=== PATIENT | male | born 1955 | race Caucasian/White ===

== ENCOUNTER 2022-01-22 18:32 | Observation (INO) | payer MEDICARE, OTHER, SELFPAY ==
[2022-01-22] VITALS (16 sets, daily range): BP systolic 117–178; BP diastolic 60–95; PULSE 64–88; RESP 9–24; TEMP 36.2; O2SAT 68–100; BMI 24.4
--- NOTE | 2022-01-22 18:46 | DI.RAD.S_ITS ---
PROCEDURE: XR CHEST 1V INDICATIONS: chest pain TECHNIQUE: One view of the chest was acquired. COMPARISON: 11/28/2021 PET/CT FINDINGS: Surgical changes and devices: Left port catheter terminates in the lower SVC. Lungs and pleura: Lungs are clear. No pleural effusions or pneumothorax. Nodular opacity projects over the left mid lung, possibly a nipple shadow. This was not seen on PET-CT from 11/28/2021. Mediastinum: Mediastinal contours appear normal. Heart size is normal. Bones and chest wall: No suspicious bony lesions. Overlying soft tissues appear unremarkable. IMPRESSION: No radiographic consolidation. Left port catheter terminates in lower SVC. There is a nodular opacity projecting over the left mid lung, not seen on prior PET-CT from 11/28/2021, possibly a nipple shadow. Dictated by: Ed Lacy M.D. on 01/22/2022 at 19:19 Approved by: Ed Lacy M.D. on 01/22/2022 at 19:23
[2022-01-22] MEDS: ASPIRIN 81 MG CHEW TAB 324 MG PO (18:51)
[2022-01-22] MEDS: NITROGLYCERIN 0.4 MG SL TAB SL ×2 (18:51→19:08)
[2022-01-22 19:23] LABS: Add Manual Diff / Slide Review NO; Basophils Absolute Auto 0 /uL (0-100); Basophils Percent Auto 0.4 % (0-2); Eosinophils Absolute Auto 100 /uL (0-450); Eosinophils Percent Auto 2.8 % (2-4); Hematocrit 23.3 % (41-53); Hemoglobin 7.7 g/dL (13.5-17.5); Lymphocytes Absolute Auto 500 /uL (1100-4500); Lymphocytes Percent Auto 21.4 % (25-40); Mean Corpuscular Hemoglobin 27.4 PG (26-34); Mean Corpuscular Volume 83.1 fL (80-100); Monocytes Absolute Auto 300 /uL (0-900); Monocytes Percent Auto 12.2 % (3-14); Neutrophils Absolute Auto 1500 /uL (1500-7000); Neutrophils Percent Auto 63.2 % (50-75); Platelet Count 174 X10^3/uL (150-400); Red Cell Distribution Width 16.9 % (11.6-14.8); White Blood Cell Count 2.4 X10^3/uL (4.5-11.0)
[2022-01-22 19:29] LABS: Alanine Aminotransferase 10 IU/L (<50); Albumin 3.7 g/dL (3.5-5.0); Albumin Globulin Ratio 1.3 (1.0-2.8); Alkaline Phosphatase 513 U/L (38-126); Aspartate Aminotransferase 46 IU/L (17-59); BUN Creatinine Ratio 16.3 (6-22); Bilirubin Total 0.4 mg/dL (0.2-1.3); Blood Urea Nitrogen 13 mg/dL (9-20); Calcium 8.8 mg/dL (8.4-10.2); Carbon Dioxide 26 mmol/L (22-32); Chloride 96 mmol/L (98-107); Creatine Kinase 95 U/L (55-170); Estimated Glomerular Filt Rate > 60 mL/min (>60); Globulin 2.9 g/dL (1.7-4.1); Glucose 100 mg/dL (80-110); HEMOLYSIS < 15 (0-50); Lipase 31 U/L (23-300); Magnesium 2.4 mg/dL (1.6-2.3); Sodium 128 mmol/L (137-145); Total Protein 6.6 g/dL (6.3-8.2)
[2022-01-22 19:41] LABS: Troponin I < 0.012 ng/mL (0.01-0.034)
--- NOTE | 2022-01-22 20:40 | ED_ITS ---
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 He had received immunotherapy and also chemotherapy which made little change in his cancer and is currently waiting for a new and difficult to find drug which he is scheduled to receive a few weeks. He developed significant retrosternal chest pressure while at rest earlier in the day that was without any obvious provocation or palliation initially. As the day went on he developed another episode that was certainly worsened by exertion and improves with rest. On his arrival his chest pain was 10/10 and improved after a few nitro and was completely resolved after morphine. During the episodes of pain he felt quite weak and short of breath but denies any vomiting or unexplained diaphoresis. He denies any recent travel nor history of clot. He has had cardiac evaluations in the past with echocardiograms and stress test but never had any abnormal findings and has never had a heart catheterization. He states it has been many years since any evaluation of this type. Related Data Home Medications Medication Instructions Recorded Confirmed lisinopril 10 mg tablet 10 mg PO DAILY 01/23/22 01/23/22 ondansetron 8 mg disintegrating 8 mg PO PRN PRN Nausea 01/23/22 01/23/22 tablet Allergies Allergy/AdvReac Type Severity Reaction Status Date / Time No Known Drug Allergies Allergy Verified 01/22/22 18:39 Review of Systems <Saul Nolasco DO - Last Filed: 01/24/22 02:52> Review of Systems Narrative: GENERAL: See HPI HEENT: Denies sinus pain, ear pain, sore throat, difficulty swallowing, dizziness. RESPIRATORY: Denies dyspnea, cough, wheezing, hemoptysis, sputum. CARDIOVASCULAR: See HPI GASTROINTESTINAL: Denies nausea, vomiting, abdominal pain, diarrhea, constipation, melena. : Denies dysuria, frequency, incontinence, hematuria, urinary retention. MUSCULOSKELETAL: denies weakness, joint pain, or bony pain SKIN: Denies rash, skin lesions, or other NEUROLOGIC: Denies weakness, headache, numbness, change in speech, confusion, seizures, incoordination. PSYCHIATRIC: No concerning psychosocial issues. 12 point review of systems is negative except for those stated above Patient History <Saul Nolasco DO - Last Filed: 01/24/22 02:52> Social History household members: spouse Smoking Status: Never smoker alcohol intake: current Smoking Status: Never smoker Substance Use Type: marijuana Exam <Saul Nolasco DO - Last Filed: 01/24/22 02:52> Narrative Exam Narrative: GENERAL: [66] year old patient appears stated age. Thin with temporal wasting HEAD: Atraumatic. Normocephalic. EYES: Pupils equal round and reactive. Extraocular motions intact. No scleral icterus. No injection or drainage. ENT: Nose without bleeding, purulent drainage. Throat without erythema, tonsillar hypertrophy or exudate. Airway patent. NECK: Trachea midline. Non tender CARDIOVASCULAR: Regular rate and rhythm without murmurs, gallops, or rubs. RESPIRATORY: Clear to auscultation. Breath sounds equal bilaterally. No wheezes, rales, or rhonchi. GASTROINTESTINAL: Abdomen soft, non-tender, nondistended. EXTREMITIES: No edema or joint tenderness. BACK: Nontender without deformity or crepitance. No flank tenderness. NEURO: AOx3. SKIN: No rash or erythema of visible areas Initial Vital Signs Initial Vital Signs: Vital Signs Temperature 97.1 F L 01/22/22 18:39 Pulse Rate 84 01/22/22 18:39 Respiratory Rate 18 01/22/22 18:39 Blood Pressure 178/95 H 01/22/22 18:39 Pulse Oximetry 99 01/22/22 18:39 Oxygen Delivery Method 01/22/22 18:39 <Marilia Conte DO - Last Filed: 01/23/22 17:53> Initial Vital Signs Initial Vital Signs: Vital Signs Temperature 97.1 F L 01/22/22 18:39 Pulse Rate 84 01/22/22 18:39 Respiratory Rate 18 01/22/22 18:39 Blood Pressure 178/95 H 01/22/22 18:39 Pulse Oximetry 99 01/22/22 18:39 Oxygen Delivery Method 01/22/22 18:39 Scores <Saul Nolasco DO - Last Filed: 01/24/22 02:52> HEART Score Heart Score history: Highly Suspicious Heart Score EKG: Normal Heart Score Age: > or = 65 years old Heart Score risk factors: 1-2 risk factors Heart Score troponin: < or = to normal limit Heart Score Total: 5 <Marilia Conte DO - Last Filed: 01/23/22 17:53> HEART Score Heart Score Total: 5 Course <Saul Nolasco, - Last Filed: 01/24/22 02:52> Orders Ordered: ED Orders 01/24/22 05:00 BMP [Basic Metabolic Panel] DAILY CBC Auto Diff [Complete Blood Count AUTO DIFF] DAILY 01/25/22 05:00 BMP [Basic Metabolic Panel] DAILY CBC Auto Diff [Complete Blood Count AUTO DIFF] DAILY 01/26/22 05:00 BMP [Basic Metabolic Panel] DAILY CBC Auto Diff [Complete Blood Count AUTO DIFF] DAILY Acetaminophen (Acetaminophen 325 Mg Tablet) 325 mg PO Q6HR PRN PRN Reason: Fever/Mild Pain (1-3) Aspirin (Aspirin Ec 81 Mg Tablet) 81 mg PO DAILY [facility] Last Admin: 01/23/22 08:33 Dose: 81 mg Documented By: DANYELL Enoxaparin Sodium (Enoxaparin 40 Mg/0.4 Ml Syringe) 40 mg SUBCUT DAILY [facility] Last Admin: 01/23/22 10:00 Dose: 40 mg Documented By: DIRK Fentanyl (Fentanyl 25 Mcg/Patch) 25 mcg TOP Q72H [facility] Last Admin: 01/23/22 18:29 Dose: 25 mcg Documented By: DIRK Sodium Chloride (Normal Saline 0.9%) 1,000 mls @ 100 mls/hr IV CONT [facility] Stop: 01/24/22 03:44 Last Admin: 01/23/22 18:29 Dose: 100 mls/hr Documented By: DIRK Lisinopril (Lisinopril 10 Mg Tablet) 10 mg PO DAILY [facility] Nitroglycerin (Nitroglycerin 0.4 Mg Sl Tab) 0.4 mg SL [id number] PRN PRN Reason: Chest Pain Last Admin: 01/22/22 19:08 Dose: 0.4 mg Documented By: Admin: 01/22/22 18:51 Dose: 0.4 mg Documented By: NASIMA Oxycodone/Acetaminophen (Oxycodone/Acetaminophen 5/325 Tablet) 1 tab PO Q4HR PRN PRN Reason: Pain, Moderate (4-6) Last Admin: 01/23/22 18:35 Dose: 1 tab Documented By: Admin: 01/23/22 12:40 Dose: 1 tab Documented By: DIRK Discontinued Medications Acetaminophen (Acetaminophen 325 Mg Tablet) 650 mg PO Q6HR PRN PRN Reason: Fever/Mild Pain (1-3) Aspirin (Aspirin 81 Mg Chew Tab) 324 mg PO NOW ONE Stop: 01/22/22 18:47 Last Admin: 01/22/22 18:51 Dose: 324 mg Documented By: NASIMA Atorvastatin Calcium (Atorvastatin 20 Mg Tablet) 40 mg PO NOW ONE Stop: 01/23/22 01:01 Last Admin: 01/23/22 01:39 Dose: 40 mg Documented By: WALTER Morphine Sulfate (Morphine 4 Mg/Ml Inj) 4 mg IV NOW ONE Stop: 01/22/22 20:51 Last Admin: 01/22/22 21:06 Dose: 4 mg Documented By: YOGESH Nitroglycerin (Nitroglycerin Oint 1 Inch/Gm Oint...G.) 0.5 inch TOP NOW ONE Stop: 01/23/22 01:44 Last Admin: 01/23/22 01:47 Dose: 0.5 inch Documented By: WALTER Oxycodone HCl (Oxycodone Ir 5 Mg Tablet) 5 mg PO NOW ONE Stop: 01/23/22 08:11 Last Admin: 01/23/22 08:32 Dose: 5 mg Documented By: DANYELL Oxycodone HCl (Oxycodone Ir 5 Mg Tablet) 5 mg PO Q4HR PRN PRN Reason: Pain, Moderate (4-6) Consultations Consultation #1: Call to Cardiology at [facility]. Dr. Tejada recommends admission and stress test. NO indication for transfer at this point call to hospitalist here at [facility]. NO access to stress until Wednesday Calls to [facility], [place], Trever Herring, . No beds. On list Vital Signs Vital signs: Vital Signs - 8 hr 01/23/22 01:47 01/23/22 00:30 01/23/22 00:30 Pulse Rate 67 62 Respiratory Rate 14 Blood Pressure 146/73 H 140/70 Pulse Oximetry 99 01/23/22 01:00 01/23/22 01:00 01/23/22 01:30 Pulse Rate 66 Respiratory Rate 19 Blood Pressure 144/76 H 146/73 H Pulse Oximetry 98 01/23/22 01:30 01/23/22 02:00 01/23/22 02:00 Pulse Rate 64 67 Respiratory Rate 13 12 Blood Pressure 134/78 Pulse Oximetry 99 100 01/23/22 02:30 01/23/22 02:30 01/23/22 03:00 Pulse Rate 65 Respiratory Rate 13 Blood Pressure 139/77 131/71 Pulse Oximetry 100 01/23/22 03:00 01/23/22 03:30 01/23/22 03:30 Pulse Rate 68 72 Respiratory Rate 13 13 Blood Pressure 121/69 Pulse Oximetry 96 97 01/23/22 04:00 01/23/22 04:00 01/23/22 04:30 Pulse Rate 67 Respiratory Rate 12 Blood Pressure 116/73 130/71 Pulse Oximetry 96 01/23/22 04:30 01/23/22 05:00 01/23/22 05:00 Pulse Rate 67 67 Respiratory Rate 20 13 Blood Pressure 135/71 Pulse Oximetry 98 98 01/23/22 05:30 01/23/22 05:30 01/23/22 06:00 Pulse Rate 74 Respiratory Rate 16 Blood Pressure 127/69 131/72 Pulse Oximetry 98 01/23/22 06:00 01/23/22 06:30 01/23/22 06:30 Pulse Rate 78 68 Respiratory Rate 17 17 Blood Pressure 138/76 Pulse Oximetry 96 97 <Marilia Conte, DO - Last Filed: 01/23/22 17:53> Orders Ordered: ED Orders 01/24/22 05:00 BMP [Basic Metabolic Panel] DAILY CBC Auto Diff [Complete Blood Count AUTO DIFF] DAILY 01/25/22 05:00 BMP [Basic Metabolic Panel] DAILY CBC Auto Diff [Complete Blood Count AUTO DIFF] DAILY 01/26/22 05:00 BMP [Basic Metabolic Panel] DAILY CBC Auto Diff [Complete Blood Count AUTO DIFF] DAILY Acetaminophen (Acetaminophen 325 Mg Tablet) 325 mg PO Q6HR PRN PRN Reason: Fever/Mild Pain (1-3) Aspirin (Aspirin Ec 81 Mg Tablet) 81 mg PO DAILY [facility] Last Admin: 01/23/22 08:33 Dose: 81 mg Documented By: CSD Enoxaparin Sodium (Enoxaparin 40 Mg/0.4 Ml Syringe) 40 mg SUBCUT DAILY [facility] Last Admin: 01/23/22 10:00 Dose: 40 mg Documented By: DIRK Fentanyl (Fentanyl 25 Mcg/Patch) 25 mcg TOP Q72H [facility] Last Admin: 01/23/22 18:29 Dose: 25 mcg Documented By: DIRK Sodium Chloride (Normal Saline 0.9%) 1,000 mls @ 100 mls/hr IV CONT ADAM Stop: 01/24/22 03:44 Last Admin: 01/23/22 18:29 Dose: 100 mls/hr Documented By: DIRK Lisinopril (Lisinopril 10 Mg Tablet) 10 mg PO DAILY [facility] Nitroglycerin (Nitroglycerin 0.4 Mg Sl Tab) 0.4 mg SL [id number] PRN PRN Reason: Chest Pain Last Admin: 01/22/22 19:08 Dose: 0.4 mg Documented By: Admin: 01/22/22 18:51 Dose: 0.4 mg Documented By: NASIMA Oxycodone/Acetaminophen (Oxycodone/Acetaminophen 5/325 Tablet) 1 tab PO Q4HR PRN PRN Reason: Pain, Moderate (4-6) Last Admin: 01/23/22 18:35 Dose: 1 tab Documented By: Admin: 01/23/22 12:40 Dose: 1 tab Documented By: DIRK Discontinued Medications Acetaminophen (Acetaminophen 325 Mg Tablet) 650 mg PO Q6HR PRN PRN Reason: Fever/Mild Pain (1-3) Aspirin (Aspirin 81 Mg Chew Tab) 324 mg PO NOW ONE Stop: 01/22/22 18:47 Last Admin: 01/22/22 18:51 Dose: 324 mg Documented By: NASIMA Atorvastatin Calcium (Atorvastatin 20 Mg Tablet) 40 mg PO NOW ONE Stop: 01/23/22 01:01 Last Admin: 01/23/22 01:39 Dose: 40 mg Documented By: WALTER Morphine Sulfate (Morphine 4 Mg/Ml Inj) 4 mg IV NOW ONE Stop: 01/22/22 20:51 Last Admin: 01/22/22 21:06 Dose: 4 mg Documented By: YOGESH Nitroglycerin (Nitroglycerin Oint 1 Inch/Gm Oint...G.) 0.5 inch TOP NOW ONE Stop: 01/23/22 01:44 Last Admin: 01/23/22 01:47 Dose: 0.5 inch Documented By: WALTER Oxycodone HCl (Oxycodone Ir 5 Mg Tablet) 5 mg PO NOW ONE Stop: 01/23/22 08:11 Last Admin: 01/23/22 08:32 Dose: 5 mg Documented By: DANYELL Oxycodone HCl (Oxycodone Ir 5 Mg Tablet) 5 mg PO Q4HR PRN PRN Reason: Pain, Moderate (4-6) Vital Signs Vital signs: Vital Signs - 8 hr 01/23/22 01:47 01/23/22 00:30 01/23/22 00:30 Pulse Rate 67 62 Respiratory Rate 14 Blood Pressure 146/73 H 140/70 Pulse Oximetry 99 01/23/22 01:00 01/23/22 01:00 01/23/22 01:30 Pulse Rate 66 Respiratory Rate 19 Blood Pressure 144/76 H 146/73 H Pulse Oximetry 98 01/23/22 01:30 01/23/22 02:00 01/23/22 02:00 Pulse Rate 64 67 Respiratory Rate 13 12 Blood Pressure 134/78 Pulse Oximetry 99 100 01/23/22 02:30 01/23/22 02:30 01/23/22 03:00 Pulse Rate 65 Respiratory Rate 13 Blood Pressure 139/77 131/71 Pulse Oximetry 100 01/23/22 03:00 01/23/22 03:30 01/23/22 03:30 Pulse Rate 68 72 Respiratory Rate 13 13 Blood Pressure 121/69 Pulse Oximetry 96 97 01/23/22 04:00 01/23/22 04:00 01/23/22 04:30 Pulse Rate 67 Respiratory Rate 12 Blood Pressure 116/73 130/71 Pulse Oximetry 96 01/23/22 04:30 01/23/22 05:00 01/23/22 05:00 Pulse Rate 67 67 Respiratory Rate 20 13 Blood Pressure 135/71 Pulse Oximetry 98 98 01/23/22 05:30 01/23/22 05:30 01/23/22 06:00 Pulse Rate 74 Respiratory Rate 16 Blood Pressure 127/69 131/72 Pulse Oximetry 98 01/23/22 06:00 01/23/22 06:30 01/23/22 06:30 Pulse Rate 78 68 Respiratory Rate 17 17 Blood Pressure 138/76 Pulse Oximetry 96 97 MDM - Chest Pain <Saul Nolasco, DO - Last Filed: 01/24/22 02:52> Lab Data Result diagrams: 01/23/22 18:42 01/22/22 19:00 Labs: Lab Results 01/22/22 01/22/22 01/22/22 Range/Units 19:00 19:00 22:44 WBC 2.4 L (4.5-11.0) X10^3/uL RBC 2.80 L (4.5-5.9) X10^6/uL Hgb 7.7 L (13.5-17.5) g/dL Hct 23.3 L (41-53) % MCV 83.1 (80-100) fL MCH 27.4 (26-34) PG MCHC 33.0 (30-36) % RDW 16.9 H (11.6-14.8) % Plt Count 174 (150-400) X10^3/uL Neut % (Auto) 63.2 (50-75) % Lymph % (Auto) 21.4 L (25-40) % [place] % (Auto) 12.2 (3-14) % Eos % (Auto) 2.8 (2-4) % Baso % (Auto) 0.4 (0-2) % Neut # (Auto) 1500 (7933-6842) /uL Lymph # (Auto) 500 L (6523-7574) /uL [place] # (Auto) 300 (0-900) /uL Eos # (Auto) 100 (0-450) /uL Baso # (Auto) 0 (0-100) /uL Sodium 128 L (137-145) mmol/L Potassium 4.0 (3.4-5.1) mmol/L Chloride 96 L (98-107) mmol/L Carbon Dioxide 26 (22-32) mmol/L BUN 13 (9-20) mg/dL Creatinine 0.80 (0.66-1.25) mg/dL Estimated GFR > 60 (>60) mL/min BUN/Creatinine Ratio 16.3 (6-22) Glucose 100 (80-110) mg/dL Hemoglobin A1c (4.0-6.0) % Calcium 8.8 (8.4-10.2) mg/dL Magnesium 2.4 H (1.6-2.3) mg/dL Total Bilirubin 0.4 (0.2-1.3) mg/dL AST 46 (17-59) IU/L ALT 10 (<50) IU/L Alkaline Phosphatase 513 H (38-126) U/L Total Creatine Kinase 95 81 (55-170) U/L CK-MB (CK-2) TNP TNP CK-MB (CK-2) Rel Index TNP TNP Troponin I < 0.012 < 0.012 (0.01-0.034) ng/mL NT-Pro-B Natriuret Pep (<125) pg/mL Total Protein 6.6 (6.3-8.2) g/dL Albumin 3.7 (3.5-5.0) g/dL Globulin 2.9 (1.7-4.1) g/dL Albumin/Globulin Ratio 1.3 (1.0-2.8) Triglycerides (35-150) mg/dL Cholesterol (140-199) mg/dL LDL Cholesterol, Calc (<100) mg/dL HDL Cholesterol (40-60) mg/dL Lipase 31 (23-300) U/L SARS-CoV-2 (PCR) (Negative) Blood Type Antibody Screen Crossmatch 01/23/22 01/23/22 01/23/22 Range/Units 04:45 08:05 08:16 WBC (4.5-11.0) X10^3/uL RBC (4.5-5.9) X10^6/uL Hgb (13.5-17.5) g/dL Hct (41-53) % MCV (80-100) fL MCH (26-34) PG MCHC (30-36) % RDW (11.6-14.8) % Plt Count (150-400) X10^3/uL Neut % (Auto) (50-75) % Lymph % (Auto) (25-40) % [place] % (Auto) (3-14) % Eos % (Auto) (2-4) % Baso % (Auto) (0-2) % Neut # (Auto) (2558-9340) /uL Lymph # (Auto) (9718-9729) /uL [place] # (Auto) (0-900) /uL Eos # (Auto) (0-450) /uL Baso # (Auto) (0-100) /uL Sodium (137-145) mmol/L Potassium (3.4-5.1) mmol/L Chloride (98-107) mmol/L Carbon Dioxide (22-32) mmol/L BUN (9-20) mg/dL Creatinine (0.66-1.25) mg/dL Estimated GFR (>60) mL/min BUN/Creatinine Ratio (6-22) Glucose (80-110) mg/dL Hemoglobin A1c (4.0-6.0) % Calcium (8.4-10.2) mg/dL Magnesium (1.6-2.3) mg/dL Total Bilirubin (0.2-1.3) mg/dL AST (17-59) IU/L ALT (<50) IU/L Alkaline Phosphatase (38-126) U/L Total Creatine Kinase 64 (55-170) U/L CK-MB (CK-2) TNP CK-MB (CK-2) Rel Index TNP Troponin I < 0.012 (0.01-0.034) ng/mL NT-Pro-B Natriuret Pep (<125) pg/mL Total Protein (6.3-8.2) g/dL Albumin (3.5-5.0) g/dL Globulin (1.7-4.1) g/dL Albumin/Globulin Ratio (1.0-2.8) Triglycerides (35-150) mg/dL Cholesterol (140-199) mg/dL LDL Cholesterol, Calc (<100) mg/dL HDL Cholesterol (40-60) mg/dL Lipase (23-300) U/L SARS-CoV-2 (PCR) Negative (Negative) Blood Type A Positive Antibody Screen Negative Crossmatch See Detail 01/23/22 01/23/22 01/23/22 Range/Units 08:16 08:16 08:16 WBC (4.5-11.0) X10^3/uL RBC (4.5-5.9) X10^6/uL Hgb (13.5-17.5) g/dL Hct (41-53) % MCV (80-100) fL MCH (26-34) PG MCHC (30-36) % RDW (11.6-14.8) % Plt Count (150-400) X10^3/uL Neut % (Auto) (50-75) % Lymph % (Auto) (25-40) % [place] % (Auto) (3-14) % Eos % (Auto) (2-4) % Baso % (Auto) (0-2) % Neut # (Auto) (5371-4222) /uL Lymph # (Auto) (1705-6134) /uL [place] # (Auto) (0-900) /uL Eos # (Auto) (0-450) /uL Baso # (Auto) (0-100) /uL Sodium (137-145) mmol/L Potassium (3.4-5.1) mmol/L Chloride (98-107) mmol/L Carbon Dioxide (22-32) mmol/L BUN (9-20) mg/dL Creatinine (0.66-1.25) mg/dL Estimated GFR (>60) mL/min BUN/Creatinine Ratio (6-22) Glucose (80-110) mg/dL Hemoglobin A1c 5.9 (4.0-6.0) % Calcium (8.4-10.2) mg/dL Magnesium (1.6-2.3) mg/dL Total Bilirubin (0.2-1.3) mg/dL AST (17-59) IU/L ALT (<50) IU/L Alkaline Phosphatase (38-126) U/L Total Creatine Kinase (55-170) U/L CK-MB (CK-2) CK-MB (CK-2) Rel Index Troponin I (0.01-0.034) ng/mL NT-Pro-B Natriuret Pep 229 H (<125) pg/mL Total Protein (6.3-8.2) g/dL Albumin (3.5-5.0) g/dL Globulin (1.7-4.1) g/dL Albumin/Globulin Ratio (1.0-2.8) Triglycerides 136 (35-150) mg/dL Cholesterol 164 (140-199) mg/dL LDL Cholesterol, Calc 102 H (<100) mg/dL HDL Cholesterol 35 L (40-60) mg/dL Lipase (23-300) U/L SARS-CoV-2 (PCR) (Negative) Blood Type Antibody Screen Crossmatch <Marilia Conte DO - Last Filed: 01/23/22 17:53> Lab Data Labs: Lab Results 01/22/22 01/22/22 01/22/22 Range/Units 19:00 19:00 22:44 WBC 2.4 L (4.5-11.0) X10^3/uL RBC 2.80 L (4.5-5.9) X10^6/uL Hgb 7.7 L (13.5-17.5) g/dL Hct 23.3 L (41-53) % MCV 83.1 (80-100) fL MCH 27.4 (26-34) PG MCHC 33.0 (30-36) % RDW 16.9 H (11.6-14.8) % Plt Count 174 (150-400) X10^3/uL Neut % (Auto) 63.2 (50-75) % Lymph % (Auto) 21.4 L (25-40) % [place] % (Auto) 12.2 (3-14) % Eos % (Auto) 2.8 (2-4) % Baso % (Auto) 0.4 (0-2) % Neut # (Auto) 1500 (9337-8377) /uL Lymph # (Auto) 500 L (4540-3190) /uL [place] # (Auto) 300 (0-900) /uL Eos # (Auto) 100 (0-450) /uL Baso # (Auto) 0 (0-100) /uL Sodium 128 L (137-145) mmol/L Potassium 4.0 (3.4-5.1) mmol/L Chloride 96 L (98-107) mmol/L Carbon Dioxide 26 (22-32) mmol/L BUN 13 (9-20) mg/dL Creatinine 0.80 (0.66-1.25) mg/dL Estimated GFR > 60 (>60) mL/min BUN/Creatinine Ratio 16.3 (6-22) Glucose 100 (80-110) mg/dL Hemoglobin A1c (4.0-6.0) % Calcium 8.8 (8.4-10.2) mg/dL Magnesium 2.4 H (1.6-2.3) mg/dL Total Bilirubin 0.4 (0.2-1.3) mg/dL AST 46 (17-59) IU/L ALT 10 (<50) IU/L Alkaline Phosphatase 513 H (38-126) U/L Total Creatine Kinase 95 81 (55-170) U/L CK-MB (CK-2) TNP TNP CK-MB (CK-2) Rel Index TNP TNP Troponin I < 0.012 < 0.012 (0.01-0.034) ng/mL NT-Pro-B Natriuret Pep (<125) pg/mL Total Protein 6.6 (6.3-8.2) g/dL Albumin 3.7 (3.5-5.0) g/dL Globulin 2.9 (1.7-4.1) g/dL Albumin/Globulin Ratio 1.3 (1.0-2.8) Triglycerides (35-150) mg/dL Cholesterol (140-199) mg/dL LDL Cholesterol, Calc (<100) mg/dL HDL Cholesterol (40-60) mg/dL Lipase 31 (23-300) U/L SARS-CoV-2 (PCR) (Negative) Blood Type Antibody Screen Crossmatch 01/23/22 01/23/22 01/23/22 Range/Units 04:45 08:05 08:16 WBC (4.5-11.0) X10^3/uL RBC (4.5-5.9) X10^6/uL Hgb (13.5-17.5) g/dL Hct (41-53) % MCV (80-100) fL MCH (26-34) PG MCHC (30-36) % RDW (11.6-14.8) % Plt Count (150-400) X10^3/uL Neut % (Auto) (50-75) % Lymph % (Auto) (25-40) % [place] % (Auto) (3-14) % Eos % (Auto) (2-4) % Baso % (Auto) (0-2) % Neut # (Auto) (7924-0881) /uL Lymph # (Auto) (6371-4267) /uL [place] # (Auto) (0-900) /uL Eos # (Auto) (0-450) /uL Baso # (Auto) (0-100) /uL Sodium (137-145) mmol/L Potassium (3.4-5.1) mmol/L Chloride (98-107) mmol/L Carbon Dioxide (22-32) mmol/L BUN (9-20) mg/dL Creatinine (0.66-1.25) mg/dL Estimated GFR (>60) mL/min BUN/Creatinine Ratio (6-22) Glucose (80-110) mg/dL Hemoglobin A1c (4.0-6.0) % Calcium (8.4-10.2) mg/dL Magnesium (1.6-2.3) mg/dL Total Bilirubin (0.2-1.3) mg/dL AST (17-59) IU/L ALT (<50) IU/L Alkaline Phosphatase (38-126) U/L Total Creatine Kinase 64 (55-170) U/L CK-MB (CK-2) TNP CK-MB (CK-2) Rel Index TNP Troponin I < 0.012 (0.01-0.034) ng/mL NT-Pro-B Natriuret Pep (<125) pg/mL Total Protein (6.3-8.2) g/dL Albumin (3.5-5.0) g/dL Globulin (1.7-4.1) g/dL Albumin/Globulin Ratio (1.0-2.8) Triglycerides (35-150) mg/dL Cholesterol (140-199) mg/dL LDL Cholesterol, Calc (<100) mg/dL HDL Cholesterol (40-60) mg/dL Lipase (23-300) U/L SARS-CoV-2 (PCR) Negative (Negative) Blood Type A Positive Antibody Screen Negative Crossmatch See Detail 01/23/22 01/23/22 01/23/22 Range/Units 08:16 08:16 08:16 WBC (4.5-11.0) X10^3/uL RBC (4.5-5.9) X10^6/uL Hgb (13.5-17.5) g/dL Hct (41-53) % MCV (80-100) fL MCH (26-34) PG MCHC (30-36) % RDW (11.6-14.8) % Plt Count (150-400) X10^3/uL Neut % (Auto) (50-75) % Lymph % (Auto) (25-40) % [place] % (Auto) (3-14) % Eos % (Auto) (2-4) % Baso % (Auto) (0-2) % Neut # (Auto) (5704-4145) /uL Lymph # (Auto) (2166-9230) /uL [place] # (Auto) (0-900) /uL Eos # (Auto) (0-450) /uL Baso # (Auto) (0-100) /uL Sodium (137-145) mmol/L Potassium (3.4-5.1) mmol/L Chloride (98-107) mmol/L Carbon Dioxide (22-32) mmol/L BUN (9-20) mg/dL Creatinine (0.66-1.25) mg/dL Estimated GFR (>60) mL/min BUN/Creatinine Ratio (6-22) Glucose (80-110) mg/dL Hemoglobin A1c 5.9 (4.0-6.0) % Calcium (8.4-10.2) mg/dL Magnesium (1.6-2.3) mg/dL Total Bilirubin (0.2-1.3) mg/dL AST (17-59) IU/L ALT (<50) IU/L Alkaline Phosphatase (38-126) U/L Total Creatine Kinase (55-170) U/L CK-MB (CK-2) CK-MB (CK-2) Rel Index Troponin I (0.01-0.034) ng/mL NT-Pro-B Natriuret Pep 229 H (<125) pg/mL Total Protein (6.3-8.2) g/dL Albumin (3.5-5.0) g/dL Globulin (1.7-4.1) g/dL Albumin/Globulin Ratio (1.0-2.8) Triglycerides 136 (35-150) mg/dL Cholesterol 164 (140-199) mg/dL LDL Cholesterol, Calc 102 H (<100) mg/dL HDL Cholesterol 35 L (40-60) mg/dL Lipase (23-300) U/L SARS-CoV-2 (PCR) (Negative) Blood Type Antibody Screen Crossmatch Imaging Data Chest x-ray: Radiologist's Impression: Farrukh Breen MR#: [id number] : 1955 Acct:[id number] Age/Sex: 66 / M Date of Service: 01/22/22 Loc: ED Accession Number: [id number] ?? Procedure: XR chest 1V Ordering Provider: Saul Nolasco D.O. PROCEDURE:? XR CHEST 1V ? INDICATIONS:? chest pain ? TECHNIQUE:? One view of the chest was acquired.? ? COMPARISON:? 11/28/2021 PET/CT ? FINDINGS:? ? Surgical changes and devices:? Left port catheter terminates in the lower SVC. ? Lungs and pleura:? Lungs are clear.? No pleural effusions or pneumothorax.? Nodular opacity projects over the left mid lung, possibly a nipple shadow.? This was not seen on PET-CT from 11/28/2021. ? Mediastinum:? Mediastinal contours appear normal.? Heart size is normal.? ? Bones and chest wall:? No suspicious bony lesions.? Overlying soft tissues appear unremarkable.? ? IMPRESSION:? No radiographic consolidation.? Left port catheter terminates in lower SVC. There is a nodular opacity projecting over the left mid lung, not seen on prior PET-CT from 11/28/2021, possibly a nipple shadow.? ? ? Dictated by: Ed Lacy M.D. on 01/22/2022 at 19:19 ? ? Approved by: Ed Lacy M.D. on 01/22/2022 at 19:23 ? CT scan - chest: Radiologist's Impression: Signed Patient: Farrukh Breen MR#: [id number] : 1955 Acct:[id number] Age/Sex: 66 / M Date of Service: 01/22/22 Loc: Accession Number: [id number] ?? Procedure: CT angio chest PE protocol Ordering Provider: Saul Nolasco D.O. PROCEDURE:? CT ANGIO CHEST PE PROTOCOL ? INDICATIONS:? chest pain, SOB, cancer ? TECHNIQUE:? After the administration of intravenous contrast, 2 mm thick sections acquired from the pulmonary apices to the posterior costophrenic angles.? 3-dimensional maximum intensity projection (MIP) coronal and sagittal reformats were then acquired through the thorax.? For radiation dose reduction, the following was used:? automated exposure contr ol, adjustment of mA and/or kV according to patient size.? ? COMPARISON:? Outside Film, CT, CT CHEST ABDOMEN PELVIS WITH CONTRAST, 06/23/2021, 9:55.? Outside Film, NM, PET NECK TO MID THIGH, 11/28/2021, 13:19. ? FINDINGS:? Image quality:? Excellent.? ? Pulmonary arteries:? Pulmonary arteries demonstrate no intraluminal filling defects to suggest central pulmonary embolism.? There is enlargement of the pulmonary arteries suggestive of pulmonary arterial hypertension.? ? Lower Neck: No lymphadenopathy by size criteria. Thyroid:? Visualized thyroid demonstrates no discrete nodules. Axillae: No lymphadenopathy by size criteria. Chest Wall:? Unremarkable.? Bones:? There are extensive lytic and sclerotic osseous lesions throughout the visualized osseous structures involving the axial and appendicular skeleton consistent with metastatic disease redemonstrated.? There is interval increase in lytic lesions compared to the prior PET-CT, such as a community health representative lesion in the right aspect of the T5 vertebral body.? There is a mildly displaced fracture of the right 6th rib laterally.? ? Lungs and Airways:? No acute consolidation.? Dependent atelectasis is demonstrated bilaterally.? Indistinct ground-glass opacities are also noted suggestive of mild pulmonary edema.? The trachea and central airways are patent. Pleura:? There are small bilateral pleural effusions with compressive atelectasis in the lung bases, left greater than right. ? Heart: Heart size is normal.? No pericardial effusion. Thoracic Vessels: The thoracic aorta appears normal in size.? Mediastinum and Megan: No lymphadenopathy by size criteria. Esophagus: No wall thickening. No hiatal hernia. Abdomen:? Visualized upper abdomen redemonstrates multiple cysts within the visualized liver. ? IMPRESSION:? ? 1. No evidence of pulmonary embolism. ? 2. Small bilateral pleural effusions with associated compressive atelectasis.? There is suspected mild pulmonary edema. ? 3. Extensive osseous metastatic disease redemonstrated with slight progression compared to the prior PET-CT. ? 4. Mildly displaced fracture of the right 6th rib laterally redemonstrated.? ? ? Dictated by: Lewis Sheppard M.D. on 01/22/2022 at 21:50 ? ? CT scan - abdomen/pelvis: Radiologist's Impression: CT Scan Report Signed Patient: Farrukh Breen MR#: [id number] : 1955 Acct:[id number] Age/Sex: 66 / M Date of Service: 01/22/22 Loc: ED Accession Number: [id number] ?? Procedure: CT abdomen pelvis w con Ordering Provider: Saul Nolasco D.O. PROCEDURE:? CT ABDOMEN PELVIS W CON ? INDICATIONS:? chest and upper abdominal pain ? TECHNIQUE:? After the administration of IV contrast, axial sections were acquired from the lung bases to the pubic symphysis.? Coronal and sagittal reformats were performed.? For radiation dose reduction, the following was used:? automated exposure control, adjustment of mA and/or kV according to patient size. ? COMPARISON:? Outside Film, MR, MR LUMBAR SPINE WITH/WITHOUT CONTRAST, 07/11/2021, 16:04.? Outside Film, CT, CT CHEST ABDOMEN PELVIS WITH CONTRAST, 06/23/2021, 9:55.? Outside Film, NM, PET NECK TO MID THIGH, 11/28/2021, 13:19.? [facility], CT, CT ANGIO CHEST PE PROTOCOL, 01/22/2022, 21:03. ? FINDINGS:? Image quality:? Excellent.? ? Lung bases:? There are small bilateral pleural effusions with associated compressive atelectasis, left greater than right.? ? Heart:? Heart is normal in size. ? ? ABDOMEN: Liver:? A few scattered simple hepatic cysts are redemonstrated as well as small low-density foci which are too small to characterize but likely represent cysts. Gallbladder:? Within normal limits without calcified gallstones.? ? Biliary ducts:? No biliary ductal dilatation.? ? Pancreas:? Unremarkable.? ? Spleen:? Normal in size.? ? Adrenal Glands:? No adrenal nodules.? ? Kidneys and Ureters:? No hydronephrosis.? ? ? Stomach and Bowel:? Stomach, small bowel loops, and colon are normal in caliber and wall thickness.? No pericecal inflammatory changes to suggest appendicitis. Peritoneum:? No abnormal intraperitoneal fluid.? No free air.? ? Ventral Wall: ? No hernia.? Abdominal Nodes:? No retroperitoneal or mesenteric adenopathy by size criteria.? Vessels:? Aorta and inferior vena cava are normal in size.? ? PELVIS: Pelvic Organs:? Unremarkable.? ? Bladder:? Unremarkable.? ? Pelvic Nodes: No enlarged lymph nodes.? Miscellaneous:? There is a fat-containing right inguinal hernia. ? Bones:? Extensive lytic and sclerotic lesions are redemonstrated throughout the visualized osseous structures consistent with metastatic disease.? These are similar in overall appearance compared to the prior study.? There are mild superior endplate compression deformities of the L1 and L2 vertebral bodies which are of indeterminate acuity but appear new compared to the prior studies ? ? IMPRESSION:? ? 1. No definite acute intra-abdominal abnormality to correlate with patient's pain symptoms. ? 2. Extensive osseous metastatic disease redemonstrated.? Mild superior endplate compression deformities of the L1 and L2 vertebral bodies are new compared to the prior studies but of indeterminate acuity.? No retropulsed fragments in the spinal canal. ? ? Dictated by: Lewis Sheppard M.D. on 01/22/2022 at 22:03 ? ? ECG Data Interpretation: EKG 1. Normal sinus rhythm rate 71 OR interval 186 QRS [address] changes or T-wave inversions EKG 2. Sinus rhythm rate 66 similar to prior MDM Narrative Medical decision making narrative: [place]- Patient signed out to me by Dr. Nolasco, I seen evaluated patient myself. He states that he is not currently on chemotherapy his last chemo was in October he is being followed over at [facility] for his cancer. He said the chemotherapy basically stopped working. He is set to start an infusion [facility]nen on the 05 of February. 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 He is in severe pain every day. He said yesterday he felt like a racking ball hit him in the chest. He was unable to move. This was not his typical cancer pain. The chest pain with exertion which improved with rest and then he had more chest pain at rest. CT chest abdomen pelvis are negative he has 3- troponins. He is no longer having chest pain but is having some of his chronic ongoing bone pain. He is found to be mildly anemic with hemoglobin 7.7 he has a white count of 2.4. He says that once he stops chemo his numbers never quite recovered. He denies any fever or chills. Sodium mildly low at 128. Patient is on multiple list to be transferred. However he is stable with negative troponins. He is on multiple wait lists. On likely he will be getting a stress test here over the weekend. However is also highly unlikely that he will be transferred. Dr. Reyes kindly accepts patient for admission Discharge Plan Departure Patient Disposition: Admitted as Observation Clinical Impression: Chest pain Admit Date/Time: 01/23/22 08:39 Admit Provider: Ajay Reyes
--- NOTE | 2022-01-22 20:50 | DI.CT.S_ITS ---
PROCEDURE: CT ANGIO CHEST PE PROTOCOL INDICATIONS: chest pain, SOB, cancer TECHNIQUE: After the administration of intravenous contrast, 2 mm thick sections acquired from the pulmonary apices to the posterior costophrenic angles. 3-dimensional maximum intensity projection (MIP) coronal and sagittal reformats were then acquired through the thorax. For radiation dose reduction, the following was used: automated exposure control, adjustment of mA and/or kV according to patient size. COMPARISON: Outside Film, CT, CT CHEST ABDOMEN PELVIS WITH CONTRAST, 06/23/2021, 9:55. Outside Film, NM, PET NECK TO MID THIGH, 11/28/2021, 13:19. FINDINGS: Image quality: Excellent. Pulmonary arteries: Pulmonary arteries demonstrate no intraluminal filling defects to suggest central pulmonary embolism. There is enlargement of the pulmonary arteries suggestive of pulmonary arterial hypertension. Lower Neck: No lymphadenopathy by size criteria. Thyroid: Visualized thyroid demonstrates no discrete nodules. Axillae: No lymphadenopathy by size criteria. Chest Wall: Unremarkable. Bones: There are extensive lytic and sclerotic osseous lesions throughout the visualized osseous structures involving the axial and appendicular skeleton consistent with metastatic disease redemonstrated. There is interval increase in lytic lesions compared to the prior PET-CT, such as a security representative lesion in the right aspect of the T5 vertebral body. There is a mildly displaced fracture of the right 6th rib laterally. Lungs and Airways: No acute consolidation. Dependent atelectasis is demonstrated bilaterally. Indistinct ground-glass opacities are also noted suggestive of mild pulmonary edema. The trachea and central airways are patent. Pleura: There are small bilateral pleural effusions with compressive atelectasis in the lung bases, left greater than right. Heart: Heart size is normal. No pericardial effusion. Thoracic Vessels: The thoracic aorta appears normal in size. Mediastinum and Megan: No lymphadenopathy by size criteria. Esophagus: No wall thickening. No hiatal hernia. Abdomen: Visualized upper abdomen redemonstrates multiple cysts within the visualized liver. IMPRESSION: 1. No evidence of pulmonary embolism. 2. Small bilateral pleural effusions with associated compressive atelectasis. There is suspected mild pulmonary edema. 3. Extensive osseous metastatic disease redemonstrated with slight progression compared to the prior PET-CT. 4. Mildly displaced fracture of the right 6th rib laterally redemonstrated. Dictated by: Lewis Sheppard M.D. on 01/22/2022 at 21:50 Approved by: Lewis Sheppard M.D. on 01/22/2022 at 22:03
--- NOTE | 2022-01-22 20:51 | DI.CT.S_ITS ---
PROCEDURE: CT ABDOMEN PELVIS W CON INDICATIONS: chest and upper abdominal pain TECHNIQUE: After the administration of IV contrast, axial sections were acquired from the lung bases to the pubic symphysis. Coronal and sagittal reformats were performed. For radiation dose reduction, the following was used: automated exposure control, adjustment of mA and/or kV according to patient size. COMPARISON: Outside Film, MR, MR LUMBAR SPINE WITH/WITHOUT CONTRAST, 07/11/2021, 16:04. Outside Film, CT, CT CHEST ABDOMEN PELVIS WITH CONTRAST, 06/23/2021, 9:55. Outside Film, NM, PET NECK TO MID THIGH, 11/28/2021, 13:19. [facility], CT, CT ANGIO CHEST PE PROTOCOL, 01/22/2022, 21:03. FINDINGS: Image quality: Excellent. Lung bases: There are small bilateral pleural effusions with associated compressive atelectasis, left greater than right. Heart: Heart is normal in size. ABDOMEN: Liver: A few scattered simple hepatic cysts are redemonstrated as well as small low-density foci which are too small to characterize but likely represent cysts. Gallbladder: Within normal limits without calcified gallstones. Biliary ducts: No biliary ductal dilatation. Pancreas: Unremarkable. Spleen: Normal in size. Adrenal Glands: No adrenal nodules. Kidneys and Ureters: No hydronephrosis. Stomach and Bowel: Stomach, small bowel loops, and colon are normal in caliber and wall thickness. No pericecal inflammatory changes to suggest appendicitis. Peritoneum: No abnormal intraperitoneal fluid. No free air. Ventral Wall: No hernia. Abdominal Nodes: No retroperitoneal or mesenteric adenopathy by size criteria. Vessels: Aorta and inferior vena cava are normal in size. PELVIS: Pelvic Organs: Unremarkable. Bladder: Unremarkable. Pelvic Nodes: No enlarged lymph nodes. Miscellaneous: There is a fat-containing right inguinal hernia. Bones: Extensive lytic and sclerotic lesions are redemonstrated throughout the visualized osseous structures consistent with metastatic disease. These are similar in overall appearance compared to the prior study. There are mild superior endplate compression deformities of the L1 and L2 vertebral bodies which are of indeterminate acuity but appear new compared to the prior studies IMPRESSION: 1. No definite acute intra-abdominal abnormality to correlate with patient's pain symptoms. 2. Extensive osseous metastatic disease redemonstrated. Mild superior endplate compression deformities of the L1 and L2 vertebral bodies are new compared to the prior studies but of indeterminate acuity. No retropulsed fragments in the spinal canal. Dictated by: Lewis Sheppard M.D. on 01/22/2022 at 22:03 Approved by: Lewis Sheppard M.D. on 01/22/2022 at 22:10
[2022-01-22] MEDS: MORPHINE 4 MG/ML INJ IV (21:06)
[2022-01-22 23:00] LABS: Creatine Kinase 81 U/L (55-170)
[2022-01-22 23:13] LABS: Troponin I < 0.012 ng/mL (0.01-0.034)
[2022-01-23] VITALS (26 sets, daily range): BP systolic 116–156; BP diastolic 68–97; PULSE 62–79; RESP 12–22; TEMP 36.1–36.4; O2SAT 96–100; BMI 24.4
[2022-01-23] MEDS: ATORVASTATIN 20 MG TABLET 40 MG PO (01:39)
[2022-01-23] MEDS: NITROGLYCERIN OINT 1 INCH/GM OINT...G. 0.5 INCH TOP (01:47)
[2022-01-23 05:00] LABS: Creatine Kinase 64 U/L (55-170)
[2022-01-23 05:13] LABS: Troponin I < 0.012 ng/mL (0.01-0.034)
[2022-01-23] MEDS: OXYCODONE IR 5 MG TABLET PO (08:32)
[2022-01-23] MEDS: ASPIRIN EC 81 MG TABLET PO (08:33)
[2022-01-23 08:48] LABS: COVID19 -Nasal RAPID Negative (Negative)
[2022-01-23 09:14] LABS: Cholesterol 164 mg/dL (140-199); HDL Cholesterol 35 mg/dL (40-60); LDL Cholesterol Calculated 102 mg/dL (<100); Triglycerides 136 mg/dL (35-150)
[2022-01-23 09:16] LABS: Hemoglobin A1C% w Est Avg Glu 5.9 % (4.0-6.0)
[2022-01-23 09:22] LABS: NT-proBNP (BNP-Adult 18+) 229 pg/mL (<125)
[2022-01-23] MEDS: ENOXAPARIN 40 MG/0.4 ML SYRINGE SUBCUT (10:00)
--- NOTE | 2022-01-23 11:15 | DI.ECHO.S_ITS ---
:Name: EMMETT NEWBERRY Study Date: 01/23/2022 Height: 72 in : :[facility] ReadingLocation: Weight: 180 lb : : Gender: Male BSA: 2.0 m2 : :: 1955 Age: 66 yrs BP: 138/76 mmHg: :Reason For Study: Chest pain : :Ordering Physician: RENEE, : :SANAM Performed By: David Fernandez : :Referring: SANAM DURAN : + + Interpretation Summary The patient was in normal sinus rhythm during the exam. Hypertensive during exam The left ventricle is normal in size and wall thickness. The ejection fraction is estimated to be 55-60%. Diastolic parameters suggest probable normal left ventricular diastolic function and normal filling pressures. There is mild mitral regurgitation. Mobile echodensity seen at the base of anterior leaflet suggestive of possible vegetation vs surgical suture vs leaflet flail. Clinical correlation recommended. If clinically indicated, consider OTTO for further evaluation. A bicuspid aortic valve cannot be excluded. There is mild aortic regurgitation. The IVC is of normal diameter and collapses greater than 50% with a sniff. This suggests a low right atrial pressure of 3 mm Hg. No prior study for comparison. Procedure: A two-dimensional transthoracic echocardiogram with color flow and Doppler was performed. The study quality was technically adequate. There is no prior echocardiogram noted for this patient. The patient was in normal sinus rhythm during the exam. Hypertensive during exam. Left Ventricle: The left ventricle is normal in size and wall thickness. Left ventricular systolic function is normal. The ejection fraction is estimated to be 55-60%. There are no focal wall motion abnormalities. Diastolic parameters suggest probable normal left ventricular diastolic function and normal filling pressures. Right Ventricle: The right ventricle is normal in size and function. Atria: Both atria are normal in size. The interatrial septum grossly appears intact with no obvious evidence for an atrial septal defect. Mitral Valve: The mitral valve is normal in structure and function. Mobile echodensity seen at the base of anterior leaflet suggestive of possible vegetation vs surgical suture vs leaflet flail. Clinical correlation recommended. If clinically indicated, consider OTTO for further evaluation. There is mild mitral regurgitation. Aortic Valve: A bicuspid aortic valve cannot be excluded. There is moderate aortic stenosis. The aortic valve mean gradient is 31 mmHg. The peak aortic velocity is 3.48 m/sec. The calculated aortic valve area is 1.2 cm2. There is mild aortic regurgitation. Tricuspid Valve: The tricuspid valve is normal in structure and function. There is a trace or physiologic amount of tricuspid regurgitation. Pulmonary artery pressures cannot be estimated because of the lack of a measurable TR jet velocity. Pulmonic Valve: The pulmonic valve is normal in structure and function. There is trace pulmonic regurgitation. Great Vessels: The aortic root is normal size. The dimensions of the ascending aorta are normal. The IVC is of normal diameter and collapses greater than 50% with a sniff. This suggests a low right atrial pressure of 3 mm Hg. Pericardium/ Pleura There is no pericardial effusion. There is no pleural effusion. MMode/2D Measurements & Calculations LVIDd: 5.6 cm LVOT diam: 2.5 cm LVIDs: 3.9 cm Ao root diam: 3.6 cm FS: 30.7 % asc Aorta Diam: 3.6 cm IVSd: 1.1 cm LVPWd: 1.1 cm LV frey. diameter/BSA (cm/m^2): 2.7 LV sys. diameter/BSA (cm/m^2): 1.9 LA A2 area: 22.7 cm2 RA long axis: 4.3 cm LA A4 area: 16.8 cm2 RA area: 14.9 cm2 LA length (vol): 4.9 cm RA vol: 43.7 ml LA vol: 66.5 ml RA : 21.4 ml/m2 LA vol index: 32.7 ml/m2 TAPSE: 2.0 cm Doppler Measurements & Calculations Ao V2 max: 348.8 cm/sec LVOT Max Prudencio: 78.9 cm/sec Ao V2 mean: 266.6 cm/sec LV V1 max P.5 mmHg Ao max P.7 mmHg LV V1 VTI: 18.2 cm Ao mean P.6 mmHg SB(I,D): 1.2 cm2 Ao V2 VTI: 73.6 cm SB(V,D): 1.1 cm2 sev ratio: 0.25 SB indexed to BSA (cm^2/m^2): 0.61 MV E max prudencio: 60.0 cm/sec SV(LVOT): 91.6 ml MV A max prudencio: 68.1 cm/sec MV E/A: 0.88 Med Peak E' Prudencio: 6.6 cm/sec E/E' med: 9.1 Lat Peak E' Prudencio: 8.9 cm/sec E/E' lat: 6.8 E/e' average: 7.9 MV dec time: 0.22 sec Reading Physician:PM
[2022-01-23] MEDS: OXYCODONE/ACETAMINOPHEN 5/325 TABLET 1 TAB PO ×2 (12:40→18:35)
--- NOTE | 2022-01-23 15:52 | DIET.CONS ---
Addendum entered by Amy Dowling 01/23/22 15:58: Also reviewed whole foods he enjoys with protein and enc intake. he agreed. Original Note: Dietary Consultation Note Admission Date: 01/23/2022 08:39 Assessment: 66 y/o M with h/o prostate cancer. Has completed chemotherapy this year and more recently radiation. Reports N/v for two weeks with recent radiation that ended last Wednesday. Reports -10# during those 2 weeks. Was mostly eating fruit during that time. States his appetite has improved since yesterday. Reports his UBW as 190# but prefers 180# -10-11# or 5-6% loss over 2 weeks (severe) N/V for two weeks r/t radiation Reports recent h/o constipation, which may be r/t low PO. slight depressed temporal region. Ht: 182.88 cm Wt: 81.647 kg BMI: 24.4 UBW: 190# Last BM: () MNA: 9 Gianluca Score: 19 Diet: 01/23/22 Breakfast Heart Healthy Diet Diet Modifications: Heart Healthy Diet Diet Modifications: Sodium Level: 2 gm Sodium Nutrition Percent Meal Consumed 75% 01/23/22 10:26 Labs: RBC 2.80 X10^6/uL (4.5-5.9) L 01/22/22 19:00 Hgb 7.7 g/dL (13.5-17.5) L 01/22/22 19:00 Hct 23.3 % (41-53) L 01/22/22 19:00 Creatinine 0.80 mg/dL (0.66-1.25) 01/22/22 19:00 Hemoglobin A1c 5.9 % (4.0-6.0) 01/23/22 08:16 NT-Pro-B Natriuret Pep 229 pg/mL (<125) H 01/23/22 08:16 Nutrition Diagnosis: Acute severe protein calorie malnutrition r/t recent radiation treatment impacting appetite aeb reported n/v for >1week, >5% wt loss in two weeks, and reported low PO during treatment. Interventions: willing to try ONS daily Discussed ONS for potential future treatments that impact appetite very receptive Monitoring/Evaluations: wt, PO, ONS tolerance Electronically Signed by: Amy Dowling 01/23/22 15:52 Clinical Dietitian [place] [phone]
--- NOTE | 2022-01-23 16:00 | P.HP_ITS ---
History of Present Illness History of Present Illness Date Patient Seen: 01/23/22 Time Patient Seen: 16:00 Chief complaint: Severe chest pain Narrative: Farrukh isidro is a 66-year-old male with metastatic prostate cancer to vertebral spine on chemotherapy, chronic pain, and hypertension presents with chest pain. Patient states yesterday evening while at rest he developed sudden onset heavy chest pressure which felt like ?an elephant on my chest?. He stated the pain was so intense that he could barely walk. Pain was constant and nonradiating. Not associated with nausea vomiting or diaphoresis. And has chronic bony mets pain in his spine, ribs, shoulders and hips but he states this pain felt very different. His father of a heart attack at age 79. The pain finally improved after receiving nitroglycerin and morphine. In the ED patient had an EKG which showed no ST changes. Troponins negative x3. He was admitted for nuclear medicine stress test which unfortunately cannot be completed until 01/26 as they were not done on the weekend. He denies nausea vomiting, shortness of breath, cough, abdominal pain or diarrhea. Patient and I had a long discussion about his chronic cancer related pain. He states it has not been adequately treated thus far as he has only been getting hydrocodone 5 mg every 4 hours from his PCP. He states the pain will become so severe at times at he does not want to live anymore. He even had a consultation with palliative Care via telemedicine recently as the pain was getting so bad. Unfortunately they did not adjust his pain medication and he has continued to suffer with this cancer related bony metastatic pain for months. Patient History Comment: Metastatic prostate cancer diagnosed in 2014 on chemotherapy Family & Social History Social History: household members spouse Prior Living Arrangements House Safety & Behavioral: Feels Safe in Current Yes Environment Been Physically Hurt or No Threatened By a Person Tobacco & Substance use: Smoking Status Never smoker alcohol intake current alcohol intake frequency holiday/special occasion Substance Use Type marijuana Meds Home Medications and Allergies Home Medications Medication Instructions Recorded Confirmed Type lisinopril 10 mg tablet 10 mg PO DAILY 01/23/22 01/23/22 History ondansetron 8 mg disintegrating 8 mg PO PRN PRN Nausea 01/23/22 01/23/22 History tablet Allergies Allergy/AdvReac Type Severity Reaction Status Date / Time No Known Drug Allergies Allergy Verified 01/22/22 18:39 Review of Systems Review of Systems Narrative: All other systems reviewed with the patient and are negative unless otherwise stated. Exam Vital Signs (past 8 hours): - 01/23/22 08:30 01/23/22 08:30 01/23/22 09:00 Temperature Pulse Rate 72 77 Respiratory Rate 17 22 Blood Pressure 134/77 Pulse Oximetry 98 98 Oxygen Delivery Method Oxygen Flow Rate 01/23/22 09:01 01/23/22 09:01 01/23/22 09:49 Temperature 97.3 F L Pulse Rate 74 74 Respiratory Rate 21 18 Blood Pressure 156/77 H 156/77 H Pulse Oximetry 96 Oxygen Delivery Method Room Air Oxygen Flow Rate 01/23/22 10:05 01/23/22 12:45 01/23/22 09:20 Temperature 96.9 F L 97.1 F L 97.2 F L Pulse Rate 79 77 72 Respiratory Rate 18 18 17 Blood Pressure 130/78 133/90 148/97 H Pulse Oximetry 100 Oxygen Delivery Method Oxygen Flow Rate 0 01/23/22 12:45 Temperature 97.1 F L Pulse Rate 77 Respiratory Rate 18 Blood Pressure 133/90 Pulse Oximetry 99 Oxygen Delivery Method Oxygen Flow Rate Oxygen Delivery Method Room Air Oxygen Flow Rate 0 Narrative Exam Narrative: GEN: no acute distress HEENT: moist mucous membranes, PERRL NECK: trachea midline, no JVD CV: regular rate and rhythm, no murmurs PULM: clear bilaterally ABD: soft, nontender, nondistended, no organomegaly EXT: warm and well perfused with no edema NEURO: awake, alert, oriented, no focal deficits Objective Labs Result Diagrams: 01/22/22 19:00 01/22/22 19:00 Labs: Laboratory Results - last 24 hr 01/22/22 01/22/22 01/22/22 19:00 19:00 22:44 WBC 2.4 L RBC 2.80 L Hgb 7.7 L Hct 23.3 L MCV 83.1 MCH 27.4 MCHC 33.0 RDW 16.9 H Plt Count 174 Neut % (Auto) 63.2 Lymph % (Auto) 21.4 L [place] % (Auto) 12.2 Eos % (Auto) 2.8 Baso % (Auto) 0.4 Neut # (Auto) 1500 Lymph # (Auto) 500 L [place] # (Auto) 300 Eos # (Auto) 100 Baso # (Auto) 0 Sodium 128 L Potassium 4.0 Chloride 96 L Carbon Dioxide 26 BUN 13 Creatinine 0.80 Estimated GFR > 60 BUN/Creatinine Ratio 16.3 Glucose 100 Hemoglobin A1c Calcium 8.8 Magnesium 2.4 H Total Bilirubin 0.4 AST 46 ALT 10 Alkaline Phosphatase 513 H Total Creatine Kinase 95 81 CK-MB (CK-2) TNP TNP CK-MB (CK-2) Rel Index TNP TNP Troponin I < 0.012 < 0.012 NT-Pro-B Natriuret Pep Total Protein 6.6 Albumin 3.7 Globulin 2.9 Albumin/Globulin Ratio 1.3 Triglycerides Cholesterol LDL Cholesterol, Calc HDL Cholesterol Lipase 31 SARS-CoV-2 (PCR) Blood Type Antibody Screen Crossmatch 01/23/22 01/23/22 01/23/22 04:45 08:05 08:16 WBC RBC Hgb Hct MCV MCH MCHC RDW Plt Count Neut % (Auto) Lymph % (Auto) [place] % (Auto) Eos % (Auto) Baso % (Auto) Neut # (Auto) Lymph # (Auto) [place] # (Auto) Eos # (Auto) Baso # (Auto) Sodium Potassium Chloride Carbon Dioxide BUN Creatinine Estimated GFR BUN/Creatinine Ratio Glucose Hemoglobin A1c Calcium Magnesium Total Bilirubin AST ALT Alkaline Phosphatase Total Creatine Kinase 64 CK-MB (CK-2) TNP CK-MB (CK-2) Rel Index TNP Troponin I < 0.012 NT-Pro-B Natriuret Pep Total Protein Albumin Globulin Albumin/Globulin Ratio Triglycerides Cholesterol LDL Cholesterol, Calc HDL Cholesterol Lipase SARS-CoV-2 (PCR) Negative Blood Type A Positive Antibody Screen Negative Crossmatch See Detail 01/23/22 01/23/22 01/23/22 08:16 08:16 08:16 WBC RBC Hgb Hct MCV MCH MCHC RDW Plt Count Neut % (Auto) Lymph % (Auto) [place] % (Auto) Eos % (Auto) Baso % (Auto) Neut # (Auto) Lymph # (Auto) [place] # (Auto) Eos # (Auto) Baso # (Auto) Sodium Potassium Chloride Carbon Dioxide BUN Creatinine Estimated GFR BUN/Creatinine Ratio Glucose Hemoglobin A1c 5.9 Calcium Magnesium Total Bilirubin AST ALT Alkaline Phosphatase Total Creatine Kinase CK-MB (CK-2) CK-MB (CK-2) Rel Index Troponin I NT-Pro-B Natriuret Pep 229 H Total Protein Albumin Globulin Albumin/Globulin Ratio Triglycerides 136 Cholesterol 164 LDL Cholesterol, Calc 102 H HDL Cholesterol 35 L Lipase SARS-CoV-2 (PCR) Blood Type Antibody Screen Crossmatch Assessment & Plan Assessment & Plan narrative: # chest pain -pain is substernal, constant with heavy pressure which is concerning for angina. Relieved in ED with nitro and morphine. -EKG normal negative x3, etiology either cardiac versus related to his metastatic cancer pain -nitroglycerin paste applied in ED -start daily aspirin -nuclear medicine stress test ordered for 01/26 -obtain echocardiogram -tele # severe pain due to aggressive metastatic prostate cancer to entire vertebra, ribs, and hips -[facility] [place] -diagnosed in 2014 and was in remission for 4 years following hormone therapy -reoccurred in 2019 than went on chemotherapy which also failed -he has an appointment on February 05 with Radiation Oncology at [facility] for a novel immunotherapy -pain has not been well controlled on hydrocodone 5 mg every 4 hours at home -start 25 mcg fentanyl patch q72 hours with oxycodone 5 mg q4 hours as needed for breakthrough pain -after 72 hours if requiring additional oxycodone doses consider raising to 50 mcg fentanyl patch on discharge -reassured patient we could prescribe him a month's supply of fentanyl patches on discharge after which his PCP can then pickup # hypertension chronic -continue home lisinopril 10 mg daily Code status is DNR. COVID negative. DVT prophylaxis with Lovenox. Proxy is Mary Kate. I have reviewed home meds and used all available resources to reconcile the home meds. Time Spent With Patient Critical Care time: I spent a total of [] minutes of critical care time on this patient's care today; this time is exclusive of procedural time. Quality VTE Deep Vein Thrombosis/Pulmonary Embolism Present on Admission: No
[2022-01-23] MEDS: fentaNYL 25 MCG/PATCH TOP (18:29)
[2022-01-23] MEDS: SODIUM CHLORIDE 0.9% 1,000 ML 100 ML IV (18:29)
[2022-01-23 19:13] LABS: Hemoglobin 8.2 g/dL (13.5-17.5)
[2022-01-24] VITALS: BP 139/80; PULSE 75; RESP 17; TEMP 36.1; O2SAT 99
[2022-01-24 05:33] LABS: BUN Creatinine Ratio 13.9 (6-22); Blood Urea Nitrogen 10 mg/dL (9-20); Calcium 8.5 mg/dL (8.4-10.2); Carbon Dioxide 27 mmol/L (22-32); Chloride 101 mmol/L (98-107); Estimated Glomerular Filt Rate > 60 mL/min (>60); Glucose 101 mg/dL (80-110); HEMOLYSIS < 15 (0-50); Potassium 4.1 mmol/L (3.4-5.1); Sodium 130 mmol/L (137-145)
[2022-01-24 05:36] LABS: Hematocrit 24.7 % (41-53); Hemoglobin 8.1 g/dL (13.5-17.5); Mean Corpuscular HGB Conc 32.8 % (30-36); Mean Corpuscular Hemoglobin 27.4 PG (26-34); Mean Corpuscular Volume 83.5 fL (80-100); Platelet Count 136 X10^3/uL (150-400); Red Blood Cell Count 2.95 X10^6/uL (4.5-5.9)
[2022-01-24 05:40] VITALS: BP 133/82; PULSE 73; RESP 18; TEMP 36.4; O2SAT 99
[2022-01-24 05:53] LABS: White Blood Cell Count 1.8 X10^3/uL (4.5-11.0)
[2022-01-24 05:54] LABS: Add Manual Diff / Slide Review YES
[2022-01-24 06:15] LABS: Neutrophils Absolute Manual 1170 /uL (3000-5900); Nucleated Red Blood Cells 1 #/Diff; Total Cells Counted 100
--- NOTE | 2022-01-24 06:15 | PC.NURSE ---
Patient resting in bed most of the shift. Up to bathroom independently, gait steady. Denied pain during the night. Denies any chest pain or discomfort. Patient has been A&O, calm and cooperative.
[2022-01-24 06:16] LABS: Anisocytosis 1+; Polychromasia 1+
[2022-01-24 08:11] VITALS: BP 145/84; PULSE 75; RESP 16; O2SAT 100
[2022-01-24] MEDS: lisinopriL 10 MG TABLET PO (10:19)
[2022-01-24] MEDS: ASPIRIN EC 81 MG TABLET PO (10:19)
[2022-01-24] MEDS: ENOXAPARIN 40 MG/0.4 ML SYRINGE SUBCUT (10:19)
--- NOTE | 2022-01-24 10:21 | CM.DANOTE ---
DCP Assessment: PCP: Stevan Leonard MD @ [facility] in [place] Payor: [facility], Medicare, and for life. Pt is a 66 y.o. M who presented to the ED for severe chest pain. Pt has a history of HTN and prostate cancer with mets to the spine. Pt received chemotherapy and is currently awaiting a new treatment at [facility]. Pt stated to the ED that his chest pain was 10/10 and improved with a few nitroglycerins. Pt admitted as observation for further management and evaluation of his symptoms and diagnosis. Pt is to get a stress test on Wednesday per MD. DCP met with pt this morning bedside. Pt was sitting up in bed and talking on the phone. DCP introduced herself and role. Pt states that he lives with his spouse, Mary Kate, in [place] in a 1 story house. Pt states that for the last few months, he has not been driving or doing many chores around the house. Pt states that his spouse is able to transport him to his appointments and do the grocery shopping and chores. Pt also states that his neighbor next door has been helping with mowing the lawn. Pt denies any DME use. Pt states that he does have family in the area but his daughter is about to move to [place]. Pt states that he is awaiting a new and exciting new treatment at [facility] to hopefully treat his cancer. Pt states that if that doesn't work, he would then be faced with making a more challenging decision. Pt denies any resources at this time and states, I think we are all good for now. White board was updated and instructed to call. Pt thankful for the discussion. DCP to continue to follow to r/o resources. P: Pt to get stress test on Wednesday per MD. Once medically stable, pt to discharge home via spouse POV. Carol Cantu RN/ALBERTO Discharge Planning/Care Management CM Discharge Assessment Start: 01/24/22 09:35 Freq: Status: Active Protocol: Document 01/24/22 09:35 NOEL (Rec: 01/24/22 09:36 NOEL [id number]) Discharge Planning Assessment Assigned Passenger Vessel Chef Caorl Cantu RN/ALBERTO Advance Directives? No Advance Directives on File No History Provided By Patient Prior Living Arrangements House Household Members spouse Type of transporation used prior to Relies on Others admit Comment Pt states that he can drive but has not been recently. Independent with ADL's Yes Is patient alert and oriented? Yes Caregiver for Another No Barriers to Discharge No Discharge Plan Home Referrals Initiated None needed Additional Comment At this time Whiteboard Updated in Patient Room with Yes name and ext. # of Passenger Vessel Chef Comment Instructed to call Review Status In Process Please Provide Date Initial DC 01/24/22 Assessment Was Performed Next Review Type Continued Stay Review
[2022-01-24] MEDS: OXYCODONE/ACETAMINOPHEN 5/325 TABLET 1 TAB PO ×2 (12:36→19:50)
[2022-01-24 15:13] VITALS: BP 132/85; PULSE 73; RESP 16; TEMP 35.9; O2SAT 99
--- NOTE | 2022-01-24 15:32 | PM.PN.1 ---
Subjective Subjective Date Patient Seen: 01/24/22 Interval history: Patient reports much improvement in his chest pain, now resolved. His chronic pain is also much improved. He has no shortness of breath or chest pain today. Exam Vital Signs (past 8 hours): - 01/24/22 08:11 01/24/22 07:50 Pulse Rate 75 Respiratory Rate 16 Blood Pressure 145/84 H Pulse Oximetry 100 Oxygen Delivery Method Room Air Oxygen Flow Rate 0 Oxygen Delivery Method Room Air Oxygen Flow Rate 0 Narrative Exam Narrative: GEN: no acute distress HEENT: moist mucous membranes, PERRL NECK: trachea midline, no JVD CV: regular rate and rhythm, no murmurs PULM: clear bilaterally ABD: soft, nontender, nondistended, no organomegaly EXT: warm and well perfused with no edema NEURO: awake, alert, oriented, no focal deficits Objective Labs Result Diagrams: 01/24/22 05:14 01/24/22 05:14 Labs: Laboratory Results - last 24 hr 01/23/22 01/24/22 01/24/22 18:42 05:14 05:14 WBC 1.8 L* RBC 2.95 L Hgb 8.2 L 8.1 L Hct 24.7 L MCV 83.5 MCH 27.4 MCHC 32.8 RDW 17.0 H Plt Count 136 L Neut % (Auto) Not Reportable Lymph % (Auto) Not Reportable [place] % (Auto) Not Reportable Eos % (Auto) Not Reportable Baso % (Auto) Not Reportable Lymph # (Auto) Not Reportable [place] # (Auto) Not Reportable Baso # (Auto) Not Reportable Total Counted 100 Seg Neutrophils % 63.0 Band Neutrophils % 2.0 L Lymphocytes % (Manual) 25.0 Monocytes % (Manual) 8.0 Eosinophils % (Manual) 2.0 Neutrophils # (Manual) 1170 L Nucleated RBCs 1 H RBC Morphology See below Polychromasia 1+ H Anisocytosis 1+ H Sodium 130 L Potassium 4.1 Chloride 101 Carbon Dioxide 27 BUN 10 Creatinine 0.72 Estimated GFR > 60 BUN/Creatinine Ratio 13.9 Glucose 101 Calcium 8.5 [facility] Medical History (Updated 01/24/22 @ 08:53 by Nicole Wei RN) Chronic pain after cancer treatment History of hormone therapy Hypertension Marijuana use Metastatic cancer to spine Prostate CA Social History household members: spouse Smoking Status: Never smoker alcohol intake: current Assessment & Plan Assessment & Plan narrative: # chest pain -pain is substernal, constant with heavy pressure which is concerning for angina. Relieved in ED with nitro and morphine. -EKG normal negative x3, etiology either cardiac versus related to his metastatic cancer pain -nitroglycerin paste applied in ED -started daily aspirin -nuclear medicine stress test ordered, no transfer available, awaiting stress testing on TTE read pending. -tele without events thus far. # severe pain due to aggressive metastatic prostate cancer to entire vertebra, ribs, and hips -[facility] [place] -diagnosed in 2014 and was in remission for 4 years following hormone therapy -reoccurred in 2018 than went on chemotherapy which also failed -he has an appointment on February 05 with Radiation Oncology at [facility] for a novel immunotherapy -pain has not been well controlled on hydrocodone 5 mg every 4 hours at home -started 25 mcg fentanyl patch q72 hours with oxycodone 5 mg q4 hours as needed for breakthrough pain, which has provided much improvement. # hypertension chronic -continue home lisinopril 10 mg daily #neutropenia and chronic anemia - continue to monitor Code status is DNR. COVID negative. DVT prophylaxis with Lovenox. Proxy is Mary Kate. I have reviewed home meds and used all available resources to reconcile the home meds. Time Spent With Patient Critical Care time: I spent a total of [] minutes of critical care time on this patient's care today; this time is exclusive of procedural time. Quality VTE Deep Vein Thrombosis/Pulmonary Embolism Present on Admission: No
[2022-01-24 20:00] VITALS: BP 147/84; PULSE 75; RESP 20; TEMP 36.1; O2SAT 97
[2022-01-25 04:11] VITALS: BP 143/87; PULSE 82; RESP 20; O2SAT 99
[2022-01-25] MEDS: OXYCODONE/ACETAMINOPHEN 5/325 TABLET 1 TAB PO ×4 (04:13→21:18)
[2022-01-25] MEDS: SODIUM CHLORIDE 0.9% FLUSH 10 ML IV ×3 (04:16→19:43)
--- NOTE | 2022-01-25 05:20 | PC.NURSE ---
Pt state that his pain is better now. He stated that now he can ambulate to the bathroom and move in bed independently. Pt given POLST form. Pt requesting palliative care consult. Pt states it's hard getting palliative care through the [facility].
[2022-01-25 07:33] VITALS: BP 119/75; PULSE 78; RESP 18; TEMP 36.1; O2SAT 99
[2022-01-25 07:46] LABS: Hematocrit 24.8 % (41-53); Hemoglobin 8.2 g/dL (13.5-17.5); Mean Corpuscular Hemoglobin 27.7 PG (26-34); Mean Corpuscular Volume 83.9 fL (80-100); Platelet Count 123 X10^3/uL (150-400); Red Blood Cell Count 2.96 X10^6/uL (4.5-5.9); Red Cell Distribution Width 17.5 % (11.6-14.8)
[2022-01-25 07:54] LABS: BUN Creatinine Ratio 14.7 (6-22); Blood Urea Nitrogen 11 mg/dL (9-20); Calcium 8.4 mg/dL (8.4-10.2); Carbon Dioxide 27 mmol/L (22-32); Chloride 98 mmol/L (98-107); Estimated Glomerular Filt Rate > 60 mL/min (>60); Glucose 99 mg/dL (80-110); HEMOLYSIS < 15 (0-50); Sodium 129 mmol/L (137-145)
[2022-01-25 07:55] LABS: Add Manual Diff / Slide Review YES; White Blood Cell Count 1.6 X10^3/uL (4.5-11.0)
[2022-01-25 08:25] LABS: Anisocytosis 1+; Neutrophils Absolute Manual 704 /uL (3000-5900); Polychromasia 1+; Total Cells Counted 100
[2022-01-25 09:26] VITALS: BP 119/75; PULSE 78
[2022-01-25] MEDS: ENOXAPARIN 40 MG/0.4 ML SYRINGE SUBCUT (09:26)
[2022-01-25] MEDS: lisinopriL 10 MG TABLET PO (09:26)
[2022-01-25] MEDS: ASPIRIN EC 81 MG TABLET PO (09:28)
[2022-01-25 11:50] VITALS: BP 103/57; PULSE 80; RESP 14; TEMP 36; O2SAT 99
[2022-01-25 15:24] VITALS: BP 127/87; PULSE 77; RESP 20; TEMP 36; O2SAT 99
--- NOTE | 2022-01-25 16:10 | P.PN_ITS ---
Subjective Subjective Date Patient Seen: 01/25/22 Interval history: Patient reports return of his chest pain today, though to a much lesser degree. Improves with opiate. His chronic pain is also much improved. He has no shortness of breath, nausea, or abdominal pain today. Exam Vital Signs (past 8 hours): - 01/25/22 09:26 01/25/22 10:40 01/25/22 11:50 Temperature 96.8 F L Pulse Rate 78 80 Respiratory Rate 14 Blood Pressure 119/75 103/57 L Pulse Oximetry 99 Oxygen Delivery Method Room Air Oxygen Flow Rate 0 01/25/22 15:24 Temperature 96.8 F L Pulse Rate 77 Respiratory Rate 20 Blood Pressure 127/87 Pulse Oximetry 99 Oxygen Delivery Method Oxygen Flow Rate 0 Oxygen Delivery Method Room Air Oxygen Flow Rate 0 Narrative Exam Narrative: GEN: no acute distress HEENT: moist mucous membranes, PERRL NECK: trachea midline, no JVD CV: regular rate and rhythm, no murmurs PULM: clear bilaterally ABD: soft, nontender, nondistended, no organomegaly EXT: warm and well perfused with no edema NEURO: awake, alert, oriented, no focal deficits Objective Imaging Echo: Radiologist's impression: The patient was in normal sinus rhythm during the exam. Hypertensive during exam The left ventricle is normal in size and wall thickness. The ejection fraction is estimated to be 55-60%. Diastolic parameters suggest probable normal left ventricular diastolic function and normal filling pressures. There is mild mitral regurgitation. Mobile echodensity seen at the base of anterior leaflet suggestive of possible vegetation vs surgical suture vs leaflet flail. Clinical correlation recommended. If clinically indicated, consider OTTO for further evaluation. A bicuspid aortic valve cannot be excluded. There is mild aortic regurgitation. The IVC is of normal diameter and collapses greater than 50% with a sniff. This suggests a low right atrial pressure of 3 mm Hg. Labs Result Diagrams: 01/25/22 07:37 01/25/22 07:37 Labs: Laboratory Results - last 24 hr 01/25/22 01/25/22 07:37 07:37 WBC 1.6 L* RBC 2.96 L Hgb 8.2 L Hct 24.8 L MCV 83.9 MCH 27.7 MCHC 33.0 RDW 17.5 H Plt Count 123 L Neut % (Auto) Not Reportable Lymph % (Auto) Not Reportable [place] % (Auto) Not Reportable Eos % (Auto) Not Reportable Baso % (Auto) Not Reportable Lymph # (Auto) Not Reportable [place] # (Auto) Not Reportable Baso # (Auto) Not Reportable Total Counted 100 Seg Neutrophils % 41.0 Band Neutrophils % 3.0 Lymphocytes % (Manual) 35.0 Monocytes % (Manual) 15.0 H Eosinophils % (Manual) 6.0 H Neutrophils # (Manual) 704 L RBC Morphology See below Polychromasia 1+ H Anisocytosis 1+ H Sodium 129 L Potassium 4.0 Chloride 98 Carbon Dioxide 27 BUN 11 Creatinine 0.75 Estimated GFR > 60 BUN/Creatinine Ratio 14.7 Glucose 99 Calcium 8.4 [facility] Medical History (Updated 01/24/22 @ 08:53 by Nicole Wei RN) Chronic pain after cancer treatment History of hormone therapy Hypertension Marijuana use Metastatic cancer to spine Prostate CA Social History household members: spouse Smoking Status: Never smoker alcohol intake: current Assessment & Plan Assessment & Plan narrative: # chest pain -pain is substernal, constant with heavy pressure which is concerning for angina. Relieved in ED with nitro and morphine. -EKG normal negative x3, etiology either cardiac versus related to his metastatic cancer pain -nitroglycerin paste applied in ED -started daily aspirin -nuclear medicine stress test ordered, no transfer available, awaiting stress testing on 01/26 -TTE shows an EF of 55-60%, normal diastolic function, but does show a mobile echodensity at the base of the anterior leaflet which could represent vegetation, suture, leaflet flail, metastasis?. No clinical signs currently of endocarditis. -tele without events thus far. # severe pain due to aggressive metastatic prostate cancer to entire vertebra, ribs, and hips -[facility] [place] -diagnosed in 2015 and was in remission for 4 years following hormone therapy -reoccurred in 2019 than went on chemotherapy which also failed -he has an appointment on February 05 with Radiation Oncology at [facility] for a novel immunotherapy -pain has not been well controlled on hydrocodone 5 mg every 4 hours at home -started 25 mcg fentanyl patch q72 hours with oxycodone 5 mg q4 hours as needed for breakthrough pain, which has provided much improvement. -given TTE findings, would recommend further evaluation with oncology as an outpatient. # hypertension chronic -continue home lisinopril 10 mg daily #neutropenia and chronic anemia - continue to monitor #chronic hyponatremia - stable. No interventions necessary. Code status is DNR. COVID negative. DVT prophylaxis with Lovenox. Proxy is Mary Kate. I have reviewed home meds and used all available resources to reconcile the home meds. Time Spent With Patient Critical Care time: I spent a total of [] minutes of critical care time on this patient's care today; this time is exclusive of procedural time. Quality VTE Deep Vein Thrombosis/Pulmonary Embolism Present on Admission: No
[2022-01-25 20:00] VITALS: BP 140/83; PULSE 76; RESP 14; O2SAT 99
[2022-01-26 01:00] VITALS: BP 128/77; PULSE 75; RESP 14; O2SAT 98
[2022-01-26] MEDS: OXYCODONE/ACETAMINOPHEN 5/325 TABLET 1 TAB PO ×3 (03:19→11:28)
[2022-01-26 05:00] VITALS: BP 133/79; PULSE 65; RESP 14; TEMP 35.6; O2SAT 99
[2022-01-26 05:44] LABS: Hematocrit 23.5 % (41-53); Hemoglobin 7.8 g/dL (13.5-17.5); Mean Corpuscular Hemoglobin 27.6 PG (26-34); Mean Corpuscular Volume 83.5 fL (80-100); Platelet Count 111 X10^3/uL (150-400); Red Blood Cell Count 2.81 X10^6/uL (4.5-5.9); Red Cell Distribution Width 17.3 % (11.6-14.8)
[2022-01-26 05:49] LABS: BUN Creatinine Ratio 16.4 (6-22); Blood Urea Nitrogen 11 mg/dL (9-20); Calcium 8.4 mg/dL (8.4-10.2); Carbon Dioxide 23 mmol/L (22-32); Chloride 99 mmol/L (98-107); Estimated Glomerular Filt Rate > 60 mL/min (>60); Glucose 93 mg/dL (80-110); HEMOLYSIS < 15 (0-50); Sodium 128 mmol/L (137-145)
[2022-01-26 05:51] LABS: Add Manual Diff / Slide Review YES
[2022-01-26 05:54] LABS: White Blood Cell Count 1.2 X10^3/uL (4.5-11.0)
[2022-01-26 06:12] LABS: Neutrophils Absolute Manual 564 /uL (3000-5900); Nucleated Red Blood Cells 1 #/Diff; Total Cells Counted 100
[2022-01-26 06:13] LABS: Anisocytosis 1+
[2022-01-26 06:14] LABS: Polychromasia 1+
[2022-01-26 07:45] VITALS: BP 126/76; PULSE 70; RESP 17; TEMP 35.7; O2SAT 99
[2022-01-26] MEDS: lisinopriL 10 MG TABLET PO (08:25)
[2022-01-26] MEDS: ASPIRIN EC 81 MG TABLET PO (08:25)
--- NOTE | 2022-01-26 09:40 | DIET.CONS2 ---
Dietary Inpatient Consultation Note Admission Date: 01/23/2022 08:39 RD f/u on 66y M with radiation induced appetite reduction. Pts POs over weekend 25-75%, continue ONS daily to support nutrition status. Diet: 01/23/22 Breakfast Heart Healthy Diet Diet Modifications: Sodium Level: 2 gm Sodium Heart Healthy Diet Diet Modifications: chocolate ensure daily Nutrition Diagnosis: Acute severe protein calorie malnutrition r/t recent radiation treatment impacting appetite aeb reported n/v for >1week, >5% wt loss in two weeks, and reported low PO during treatment. Nutrition Percent Meal Consumed 25% 01/25/22 17:26 Percent Meal Consumed 50% 01/25/22 09:14 Percent Meal Consumed 75% 01/24/22 18:00 Electronically Signed by: Jessica Barroso 01/26/22 09:40 Clinical Dietitian [address] [id number]
[2022-01-26 10:59] VITALS: BP 135/78; PULSE 70; RESP 18; TEMP 35.6; O2SAT 99
--- NOTE | 2022-01-26 12:08 | PC.NURSE ---
Assess- Patient is pleasant, he is alert and oriented x4. States pain to back and chest is a 6/10 and patient given percocet. This has been helpful. Patient is gonna go to his stress test around 1230 and would like to increase his fentanyl patch when patient comes back. He is independent in his room and comfortable.
[2022-01-26 15:00] VITALS: BP 139/86; PULSE 90; RESP 18; TEMP 36.2; O2SAT 100
[2022-01-26] MEDS: fentaNYL 12 MCG/PATCH TOP (16:04)
[2022-01-26] MEDS: fentaNYL 25 MCG/PATCH TOP (16:05)
--- NOTE | 2022-01-26 17:22 | DI.NM.S_ITS ---
DATE OF SERVICE: 01/26/2022 PROCEDURE: Pharmacological perfusion study. INDICATION: Chest pain with underlying hypertension. RADIOPHARMACEUTICAL: 26.2 millicurie technetium-99m Myoview IV was injected at stress and 10.9 millicurie technetium-99m Myoview IV was injected at rest. CARDIAC STRESS: The patient underwent IV Lexiscan perfusion study under the supervision of an attending staff. The patient received IV Lexiscan, as per protocol. Baseline rhythm was sinus. During stress, there were no convincing ischemic changes. In recovery, patient has frequent PVCs, as well as some PACs, without any sustained ventricular tachycardia. The patient had chest pain prior to the stress test. It was on a scale of 1 to 10, 3 in intensity, without any ischemic changes. During Lexiscan, patient has minimal dyspnea and vomited after Lexiscan injection. The patient was given intravenous aminophylline 100 mg after the stress test, which resolved nausea and vomiting. In recovery, chest pain reduced to 2/10. RAW DATA: There is increased subdiaphragmatic activity. Hot spot seen near the inferior border of the heart. GATED STUDY: Resting LV ejection fraction 71 and stress LV ejection fraction 73 percent without any obvious wall motion abnormalities. Resting end-diastolic volume 129 mL. TID ratio 0.99, which is within normal limits. Lung/heart ratio 0.44, which is within normal limits. MYOCARDIAL PERFUSION SCAN: Stress supine, resting supine and stress prone images were compared to each other. Stress supine and resting supine images revealed moderate-size, moderate to severely decreased perfusion of inferior wall extending into the inferoapex, as well as basal inferolateral wall, which got completely resolved during stress prone images, suggestive of tissue attenuation artifact. No convincing ischemia or infarction during stress prone images. CONCLUSION: This is a normal myocardial perfusion study with evidence of tissue attenuation artifact, which got resolved during stress prone images, as stated above. Preserved left ventricular function. Baseline chest pain without any electrocardiographic changes. During stress, no convincing ischemic changes. The patient has intermittent PVCs, including ventricular couplet and some premature atrial contractions without any obvious sustained ventricular tachycardia or atrial fibrillation. As far as perfusion scan is concerned, this is a low-risk myocardial perfusion scan. Farrukh Breen - MURPHY/bridget/new doc#: [id number]/job#: [id number] dd: 01/26/2022 16:37:00 dt: 01/26/2022 17:00:00 DICTATING MD/COPIES TO: Gayla Powell MD COPIES MNE: TIFFANIE;
--- NOTE | 2022-01-26 17:23 | P.DS_ITS ---
History of Present Illness History of Present Illness Date Patient Seen: 01/26/22 Chief complaint: Severe chest pain Narrative: Per Dr. 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 Patient states yesterday evening while at rest he developed sudden onset heavy chest pressure which felt like ?an elephant on my chest?. He stated the pain was so intense that he could barely walk. Pain was constant and nonradiating. Not associated with nausea vomiting or diaphoresis. And has chronic bony mets pain in his spine, ribs, shoulders and hips but he states this pain felt very different. His father of a heart attack at age 79. The pain finally improved after receiving nitroglycerin and morphine. In the ED patient had an EKG which showed no ST changes. Troponins negative x3. He was admitted for nuclear medicine stress test which unfortunately cannot be completed until 01/26 as they were not done on the weekend. He denies nausea vomiting, shortness of breath, cough, abdominal pain or diarrhea. Patient and I had a long discussion about his chronic cancer related pain. He states it has not been adequately treated thus far as he has only been getting hydrocodone 5 mg every 4 hours from his PCP. He states the pain will become so severe at times at he does not want to live anymore. He even had a consultation with palliative Care via telemedicine recently as the pain was getting so bad. Unfortunately they did not adjust his pain medication and he has continued to suffer with this cancer related bony metastatic pain for months. Discharge Providers Provider Date of admission: 01/23/22 08:39 Discharge Date: 01/26/22 Primary care physician: Ajay Reyes DO Consults: 01/23/22 10:23 Consult to Dietitian, Adult Routine Comment: Reason For Exam: weight loss Discharge provider: Shan Bond DO Summary Hospital Course Discharge Diagnosis: # chest pain # severe pain due to aggressive metastatic prostate cancer to entire vertebra, ribs, and hips # hypertension chronic #neutropenia and chronic anemia #chronic hyponatremia Hospital Course: This is a 66-year-old male with a past medical history of metastatic prostate cancer, hypertension, and anemia who was admitted with chest pain. Given his intermediate risk, he was recommended for stress testing. However, this could not be performed for multiple days due to testing availability at [facility] and transfer was not obtainable. Echocardiogram showed a normal EF and normal diastolic function. However it did show a mobile echodensity at the anterior leaflet. He had no fever, chills, and appeared well. He had no events on telemetry. Ultimately stress testing was performed and was low risk for ischemia. He was started on fentanyl patch with marked improvement in his symptoms as well, indicating his metastatic disease as the likely culprit of his symptoms. I recommend continued follow up with his PCP and oncologist for further pain prescriptions, and consider cardiology consultation for his small mobile echodensity noted on echocardiogram. He was moderately anemic over the course of his stay, but this was stable over the course of his admission and he had no evidence of active bleeding. Exam Vital Signs (past 8 hours): - 01/26/22 10:59 01/26/22 15:00 Temperature 96.1 F L 97.2 F L Pulse Rate 70 90 Respiratory Rate 18 18 Blood Pressure 135/78 139/86 Pulse Oximetry 99 100 Oxygen Flow Rate 0 0 Oxygen Delivery Method Room Air Oxygen Flow Rate 0 Narrative Exam Narrative: GEN: no acute distress HEENT: moist mucous membranes, PERRL NECK: trachea midline, no JVD CV: regular rate and rhythm, no murmurs PULM: clear bilaterally ABD: soft, nontender, nondistended, no organomegaly EXT: warm and well perfused with no edema NEURO: awake, alert, oriented, no focal deficits Objective Labs Result Diagrams: 01/26/22 05:30 01/26/22 05:30 Labs: Laboratory Results - last 24 hr 01/26/22 01/26/22 05:30 05:30 WBC 1.2 L* RBC 2.81 L Hgb 7.8 L Hct 23.5 L MCV 83.5 MCH 27.6 MCHC 33.0 RDW 17.3 H Plt Count 111 L Neut % (Auto) Not Reportable Lymph % (Auto) Not Reportable [place] % (Auto) Not Reportable Eos % (Auto) Not Reportable Baso % (Auto) Not Reportable Lymph # (Auto) Not Reportable [place] # (Auto) Not Reportable Baso # (Auto) Not Reportable Total Counted 100 Seg Neutrophils % 39.0 Band Neutrophils % 8.0 H Lymphocytes % (Manual) 32.0 Monocytes % (Manual) 16.0 H Eosinophils % (Manual) 5.0 H Neutrophils # (Manual) 564 L Nucleated RBCs 1 H RBC Morphology See below Polychromasia 1+ H Anisocytosis 1+ H Sodium 128 L Potassium 4.0 Chloride 99 Carbon Dioxide 23 BUN 11 Creatinine 0.67 Estimated GFR > 60 BUN/Creatinine Ratio 16.4 Glucose 93 Calcium 8.4 PFSH Medical History (Updated 01/24/22 @ 08:53 by Nicole Wei RN) Chronic pain after cancer treatment History of hormone therapy Hypertension Marijuana use Metastatic cancer to spine Prostate CA Social History household members: spouse Smoking Status: Never smoker alcohol intake: current Discharge Plan Discharge Plan Patient Disposition: Home Provider Discharge Comment: You were admitted to the hospital with chest pain. This improved slightly with fentanyl patch. Recommend you continue this but further refills will need to be through oncology or PCP. Stress testing was normal. You have a small abnormality on your echocardiogram that may need further evaluation as an outpatient (with cardiology possibly). I would discuss this with you PCP and oncologist. Discharge orders & Medications Prescriptions: New fentanyl 37.5 mcg/hour patch 72 hour 1 patch transdermal Q72H 15 Days Qty: 5 0RF Continued ondansetron 8 mg tablet,disintegrating 8 mg PO PRN PRN (Reason: Nausea) lisinopril 10 mg tablet 10 mg PO DAILY Follow up/Referrals: Ajay Reyes DO [Primary Care Provider] - Diet/Activity/Treatments Diet: Diet as Tolerated Activity: As tolerated Visit Report/Discharge Packet Instructions: DI for Chest Pain, Fentanyl Transdermal Patch Discharge Data Primary Care Provider: Ajay Reyes Attending Provider: Ajay Reyes Quality VTE Deep Vein Thrombosis/Pulmonary Embolism Present on Admission: No
== END 2022-01-26 18:49 | disposition home or self-care (01) ==
LOC: ED 01-23 08:38 → AC 01-23 08:39
PROVIDERS: Emergency Medicine; Admitting Provider Student in an Organized Health Care Education/Training Program; Emergency Provider Emergency Medicine; PCP Student in an Organized Health Care Education/Training Program; Referring Provider Emergency Medicine; Visit Provider Student in an Organized Health Care Education/Training Program
DX: C79.51 Secondary malignant neoplasm of bone (principal); C61 Malignant neoplasm of prostate; I10 Essential (primary) hypertension; D70.9 Neutropenia, unspecified; D64.9 Anemia, unspecified; E87.1 Hypo-osmolality and hyponatremia; Z20.822 Contact with and (suspected) exposure to COVID-19
CPT/HCPCS: 36415; 36430; 71045; 71275; 74177; 78452; 80048; 80053; 80061; 82550; 82553; 83036; 83690; 83735; 83880; 84484; 85007; 85018; 85025; 86850; 86900; 86901; 87635; 93005; 93010; 93017; 93306; 96361; 96374; 99285; C9803; G0378; P9016; A9502; J1650; J2270; J2785; Q9967